=== PATIENT | male | born 1965 | race African-American/Black ===

== ENCOUNTER 2016-07-06 10:39 | Emergency (ER) | payer MEDICAID, OTHER ==
[~2016-07-06] VITALS: Ht 182.9 cm; Wt 81.6 kg
[2016-07-06] MEDS ORDERED: NAPR500T PO (12:32)
[2016-07-06] MEDS ORDERED: ULTR50TA PO (12:32)
--- NOTE | 2016-07-06 12:32 | REP ---
RIGHT KNEE SERIES: Five views. HISTORY: Trauma. FINDINGS: The patient is status post screw plate fixation for lateral tibial plateau fracture. Radiographs from October 14, 2015 show the fracture. No new fracture is appreciated today. IMPRESSION: Status post screw plate fixation lateral tibial plateau fracture. No new fracture seen. Signed by Salvador Dobbs MD 07/06/2016 02:02 P
--- NOTE | 2016-07-06 12:37 | REP ---
RIGHT ANKLE COMPLETE: 07/06/2016 COMPARISON: 10/14/2015 CLINICAL HISTORY: Trauma, circumferential pain about the ankle. Twisting injury. Four views show two screws in the medial malleolus into the lower tibia. There is a plate and screw fixation along the distal fibula as before with a single anterior to posterior screw also in that fibula. Healing and remodeling of the fracture is noted. I do not see any new or superimposed acute fracture. The more peripheral of the threaded nails in the medial malleolus now extends to the peripheral margin of the distal tibial metaphysis but does not definitely protruding through it. There are extensive post-traumatic arthritic changes all around the ankle mortise joint with numerous subchondral lucencies and sclerosis in the tibial plafond medial malleolus and the adjacent talus. There is less degenerative change along the lateral margin of the talus and adjacent fibula. The subtalar joints were intact. There is a small ossific density anterior to the tibial plafond as a calcific loose body. There is a tiny spur at the insertion of the Achilles tendon and plantar aponeurosis on the posterior calcaneus. Narrowing of the calcaneal cuboid articulation noted but not the talonavicular joint. IMPRESSION: 1. Extensive post-traumatic arthritis with sclerosis, subchondral cystic change and erosions of the tibial plafond and medial malleolar margins and the adjacent talar dome and medial wall of the talus. 2. Status post ORIF for bilateral malleolar fracture with healing and remodeling of the distal fibular fracture. The two screws in the medial malleolus are intact. There is no evidence of an acute fracture. Signed by Odilon Walls MD 07/06/2016 05:02 P
[2016-07-06 12:40] VITALS: BP 135/71
== END 2016-07-06 12:42 | disposition home or self-care (01) ==
LOC: M ED 11:34
DX: S93.401A Sprain of unspecified ligament of right ankle, initial encounter (principal); S83.91XA Sprain of unspecified site of right knee, initial encounter; W01.198A Fall on same level from slipping, tripping and stumbling with subsequent striking against other object, initial encounter; Y92.099 Unspecified place in other non-institutional residence as the place of occurrence of the external cause; Y93.01 Activity, walking, marching and hiking; Y99.9 Unspecified external cause status

== ENCOUNTER → 2016-08-07 | Outpatient (REF) | payer OTHER ==
[~2016-08-07] MED LIST: NAPR500T PO; ULTR50TA PO
== END ==
LOC: M SFHCPLAZ 10:33
PROVIDERS: ATTEND Family Medicine
DX: R76.8 Other specified abnormal immunological findings in serum (principal)

== ENCOUNTER → 2016-08-07 | Outpatient (REF) | payer OTHER ==
[2016-08-07 15:57] LABS: BASO % 0.4 % (0.0-1.0); EOS % 0.7 % (0.0-3.0); LARGE UNSTAINED CELL # 0.1 K/mm3 (0.0-0.4); LARGE UNSTAINED CELL % 1.7 % (0.0-4.0); LYMPH # 2.3 K/mm3 (1.5-4.5); LYMPH % 29.9 % (24.0-44.0); MEAN CORPUSCULAR HEMOGLOBIN 30.5 pg (27.0-33.0); MEAN CORPUSCULAR HGB CONC 32.6 g/dl (32.0-36.5); MEAN CORPUSCULAR VOLUME 93.4 fl (80.0-96.0); MONO # 0.4 K/mm3 (0.0-0.8); MONO % 5.8 % (0.0-5.0); NEUTROPHILS # 4.5 K/mm3 (1.8-7.7); NEUTROPHILS % 61.4 % (36.0-66.0); PLATELET COUNT, AUTOMATED 206 k/mm3 (150-450); RED CELL DISTRIBUTION WIDTH 13.1 % (11.5-14.5); WHITE BLOOD COUNT 7.3 K/mm3 (4.0-10.0)
[2016-08-07 16:24] LABS: ALBUMIN 4.2 GM/DL (3.2-5.2); ALBUMIN/GLOBULIN RATIO 1.05 (1.00-1.93); ALKALINE PHOSPHATASE 141 U/L (45-117); ALT/SGPT 197 U/L (12-78); ANION GAP 8 MEQ/L (8-16); AST/SGOT 88 U/L (15-37); BILIRUBIN,TOTAL 0.9 MG/DL (0.2-1.0); BLOOD UREA NITROGEN 13 MG/DL (7-18); CALCIUM LEVEL 8.5 MG/DL (8.5-10.1); CARBON DIOXIDE LEVEL 27 MEQ/L (21-32); CHLORIDE LEVEL 105 MEQ/L (98-107); CREATININE FOR GFR 1.03 MG/DL (0.70-1.30); GLOMERULAR FILTRATION RATE > 60.0 (>56); GLUCOSE, FASTING 93 MG/DL (70-105); SODIUM LEVEL 140 MEQ/L (136-145); TOTAL PROTEIN 8.2 GM/DL (6.4-8.2)
== END ==
LOC: M LABDRAWP 15:10
PROVIDERS: ATTEND Family Medicine
DX: R11.2 Nausea with vomiting, unspecified (principal)

== ENCOUNTER → 2017-02-04 | Outpatient (REF) | payer OTHER ==
[~2017-02-04] MED LIST changes: -ULTR50TA PO; +ULTR50TA8 PO
[2017-02-04 13:00] LABS: ALBUMIN 3.7 GM/DL (3.2-5.2); ALKALINE PHOSPHATASE 108 U/L (45-117); ALT/SGPT 79 U/L (12-78); ANION GAP 7 MEQ/L (8-16); AST/SGOT 40 U/L (15-37); BILIRUBIN,TOTAL 0.4 MG/DL (0.2-1.0); BLOOD UREA NITROGEN 13 MG/DL (7-18); CALCIUM LEVEL 8.3 MG/DL (8.5-10.1); CARBON DIOXIDE LEVEL 27 MEQ/L (21-32); CHLORIDE LEVEL 106 MEQ/L (98-107); CREATININE FOR GFR 0.98 MG/DL (0.70-1.30); GLOMERULAR FILTRATION RATE > 60.0 (>56); GLUCOSE, FASTING 99 MG/DL (70-105); POTASSIUM SERUM 3.9 MEQ/L (3.5-5.1); SODIUM LEVEL 140 MEQ/L (136-145); TOTAL PROTEIN 7.8 GM/DL (6.4-8.2)
[2017-02-04 13:07] LABS: HEPATITIS B SURFACE ANTIBODY POSITIVE (POSITIVE)
[2017-02-04 13:40] LABS: BASO % 0.4 % (0.0-1.0); EOS # 0.1 10^3/uL (0.0-0.50); EOS % 0.9 % (0.0-3.0); IMMATURE GRANULOCYTE % 0.4 % (0-0); LYMPH # 2.6 10^3/uL (1.5-4.5); LYMPH % 30.3 % (24.0-44.0); MEAN CORPUSCULAR HEMOGLOBIN 30.8 pg (27.0-33.0); MEAN CORPUSCULAR HGB CONC 32.7 g/dl (32.0-36.5); MEAN CORPUSCULAR VOLUME 94.2 fl (80.0-96.0); MONO # 0.6 10^3/uL (0.0-0.8); MONO % 6.8 % (0.0-5.0); NEUTROPHILS # 5.2 10^3/uL (1.8-7.7); NEUTROPHILS % 61.2 % (36.0-66.0); PLATELET COUNT, AUTOMATED 216 10^3/uL (150-450); RED CELL DISTRIBUTION WIDTH 13.4 % (11.5-14.5); WHITE BLOOD COUNT 8.5 10^3/uL (4.0-10.0)
[2017-02-07 08:16] LABS: ALT 76 IU/L (0-55); GGT 52 IU/L (0-65); HAPTOGLOBIN 118 mg/dL (34-200); NECROINFLAM SCORE 0.38 (0.00-0.17); NECROINFLAMM GRADE A1-A2 (.); TOTAL BILIRUBIN 0.2 mg/dL (0.0-1.2)
== END ==
LOC: M SFHCPLAZ 10:45
PROVIDERS: ATTEND Internal Medicine Infectious Disease
DX: K73.2 Chronic active hepatitis, not elsewhere classified (principal)

== ENCOUNTER → 2017-02-08 | Outpatient (REF) | payer OTHER ==
[2017-02-08 16:12] LABS: ALT/SGPT 75 U/L (12-78); AST/SGOT 34 U/L (15-37)
[2017-02-12 14:13] LABS: HEPATITIS C QUANTITATION 167570 IU/mL (.); PSA TOTAL 0.6 ng/mL (0.0-4.0)
== END ==
LOC: M SFHCPLAZ 14:54
PROVIDERS: ATTEND Internal Medicine Infectious Disease
DX: Z12.5 Encounter for screening for malignant neoplasm of prostate (principal); F41.1 Generalized anxiety disorder; K73.2 Chronic active hepatitis, not elsewhere classified

== ENCOUNTER 2017-05-14 00:20 | Emergency (ER) | payer OTHER ==
[2017-05-14 01:01] LABS: BASO % 0.3 % (0.0-1.0); EOS # 0.1 10^3/uL (0.0-0.50); EOS % 1.3 % (0.0-3.0); HEMATOCRIT 44.2 % (42.0-52.0); HEMOGLOBIN 14.5 g/dl (14.0-18.0); IMMATURE GRANULOCYTE % 0.2 % (0-0); LYMPH # 3.4 10^3/uL (1.5-4.5); LYMPH % 39.1 % (24.0-44.0); MEAN CORPUSCULAR HEMOGLOBIN 29.8 pg (27.0-33.0); MEAN CORPUSCULAR HGB CONC 32.8 g/dl (32.0-36.5); MEAN CORPUSCULAR VOLUME 90.9 fl (80.0-96.0); MONO # 0.7 10^3/uL (0.0-0.8); MONO % 7.8 % (0.0-5.0); NEUTROPHILS # 4.5 10^3/uL (1.8-7.7); NEUTROPHILS % 51.3 % (36.0-66.0); RED BLOOD COUNT 4.86 10^6/uL (4.30-6.10); RED CELL DISTRIBUTION WIDTH 12.8 % (11.5-14.5); WHITE BLOOD COUNT 8.7 10^3/uL (4.0-10.0)
[2017-05-14 01:04] LABS: POS COUNT POS FLAG
[2017-05-14 01:32] LABS: ANION GAP 6 MEQ/L (8-16); BLOOD UREA NITROGEN 16 MG/DL (7-18); CALCIUM LEVEL 8.8 MG/DL (8.5-10.1); CARBON DIOXIDE LEVEL 28 MEQ/L (21-32); CHLORIDE LEVEL 104 MEQ/L (98-107); CPK CREATINE PHOSPHOKINASE 237 U/L (39-308); CREATININE FOR GFR 1.07 MG/DL (0.70-1.30); GLOMERULAR FILTRATION RATE > 60.0 (>56); GLUCOSE, FASTING 84 MG/DL (70-100); MB/CK RELATIVE INDEX 0.42 (< OR =4); POTASSIUM SERUM 5.1 MEQ/L (3.5-5.1); SODIUM LEVEL 138 MEQ/L (136-145); TROPONIN I < 0.02 NG/ML (< 0.10)
[2017-05-14] MEDS: NITROGLYCERIN 0.4 MG SUBL TABLET SL (01:55)
[2017-05-14] MEDS: ASPIRIN 81 MG CHEW TABLET PO (01:55)
== END 2017-05-14 04:23 | disposition home or self-care (01) ==
LOC: M ED 00:20
DX: R07.9 Chest pain, unspecified (principal); F17.200 Nicotine dependence, unspecified, uncomplicated
CPT/HCPCS: 71046

== ENCOUNTER → 2017-06-20 | Outpatient (REF) | payer OTHER ==
[2017-06-20 12:57] LABS: ALBUMIN 3.8 GM/DL (3.2-5.2); ALBUMIN/GLOBULIN RATIO 0.97 (1.00-1.93); ALKALINE PHOSPHATASE 98 U/L (45-117); ALT/SGPT 17 U/L (12-78); AST/SGOT 19 U/L (7-37); BILIRUBIN,DIRECT 0.3 MG/DL (0.0-0.2); BILIRUBIN,TOTAL 1.4 MG/DL (0.2-1.0); TOTAL PROTEIN 7.7 GM/DL (6.4-8.2)
[2017-06-24 10:08] LABS: HEPATITIS C QUANTITATION HCV Not Detected IU/mL (.)
== END ==
LOC: M SFHCPLAZ 09:28
DX: K73.2 Chronic active hepatitis, not elsewhere classified (principal)
CPT/HCPCS: 36415

== ENCOUNTER 2017-07-15 11:13 | Day surgery (SDC) | payer OTHER ==
[~2017-07-15 11:13] MED LIST changes: -NAPR500T PO; +PROPOFOL 200 MG/20 ML VIAL As Ordered; -ULTR50TA8 PO
[2017-07-15] MEDS ORDERED: NS 1,000 ML IV (12:45)
[2017-07-15] MEDS ORDERED: PROPOFOL 200 MG/20 ML VIAL As Ordered (13:43)
== END 2017-07-15 14:22 | disposition home or self-care (01) ==
LOC: M OPP 11:13
DX: Z12.11 Encounter for screening for malignant neoplasm of colon (principal); K62.1 Rectal polyp; K64.8 Other hemorrhoids; J45.909 Unspecified asthma, uncomplicated; M19.90 Unspecified osteoarthritis, unspecified site; F32.9 Major depressive disorder, single episode, unspecified; F11.11 Opioid abuse, in remission; B18.2 Chronic viral hepatitis C; Z91.040 Latex allergy status; Z91.018 Allergy to other foods; Z79.899 Other long term (current) drug therapy
CPT/HCPCS: 45385

== ENCOUNTER → 2018-01-23 | Outpatient (CLI) | payer MEDICAID | LOC: M OUTALCOH 13:59 | DX: Z13.89 Encounter for screening for other disorder (principal); F11.20 Opioid dependence, uncomplicated ==

== ENCOUNTER 2018-02-06 15:55 | Outpatient (RCR) | payer MEDICAID | END 2018-02-19 | LOC: M OUTALCOH 15:55 | DX: F11.20 Opioid dependence, uncomplicated (principal) ==

== ENCOUNTER 2018-07-17 14:21 | Emergency (ER) | payer MEDICAID, OTHER ==
[~2018-07-17] VITALS: Ht 180.3 cm; Wt 84.1 kg
[~2018-07-17 14:21] MED LIST changes: +EPCL1TAB PO; +GABA-1171 PO; +NAPR-837 PO; -PROPOFOL 200 MG/20 ML VIAL As Ordered; +SUBO4MIS SL; +ULTR50TA8 PO
--- NOTE | 2018-07-17 15:10 | ECGEPIP ---
Stationary ECG Study [facility] - ED Test Date: 2018-07-17 Pat Name: DORA PHILLIPS Department: Room: - Gender: M [employer] Operator: pmo : [id number] Requested By: Todd Millan Order Number: [id number] Reading MD: Alysia Ames Measurements Intervals [place] Rate: 88 P: 66 [place]: 152 QRS: 74 QRSD: 84 T: 59 QT: 313 QTc: 379 Interpretive Statements SINUS RHYTHM DECREASED RATE 10/14/15 Electronically Signed On 07-17-2018 15:10:05 EDT by Alysia Ames
[2018-07-17 15:20] LABS: BASO % 0.3 % (0.0-1.0); EOS # 0.1 10^3/uL (0.0-0.50); EOS % 0.7 % (0.0-3.0); HEMATOCRIT 47.7 % (42.0-52.0); HEMOGLOBIN 15.7 g/dl (13.5-17.5); LYMPH # 2.4 10^3/uL (1.5-4.5); MEAN CORPUSCULAR HGB CONC 32.9 g/dl (32.0-36.5); MONO # 0.5 10^3/uL (0.0-0.8); MONO % 6.8 % (0.0-5.0); NEUTROPHILS # 4.6 10^3/uL (1.8-7.7); NEUTROPHILS % 60.9 % (36.0-66.0); PLATELET COUNT, AUTOMATED 226 10^3/uL (150-450); RED BLOOD COUNT 5.24 10^6/uL (4.30-6.10); WHITE BLOOD COUNT 7.6 10^3/uL (4.0-10.0)
--- NOTE | 2018-07-17 15:47 | REP ---
Chest x-ray: Two views. History: Chest pain. Comparison study: May 14, 2017. Findings: The lungs are well inflated and clear. The pleural angles are sharp. Heart size is normal. No bony abnormality is seen. Pulmonary vasculature is not increased. Impression: Negative chest x-ray. Electronically Signed by Salvador Dobbs MD 07/17/2018 03:39 P
[2018-07-17 15:51] LABS: ALBUMIN 3.7 GM/DL (3.2-5.2); ALT/SGPT 22 U/L (12-78); BILIRUBIN,DIRECT 0.1 MG/DL (0.0-0.2); BILIRUBIN,TOTAL 0.9 MG/DL (0.2-1.0); BLOOD UREA NITROGEN 12 MG/DL (7-18); C REACTIVE PROTEIN QUANTITATIV < 0.30 MG/DL (0.00-0.30); CALCIUM LEVEL 8.8 MG/DL (8.5-10.1); CARBON DIOXIDE LEVEL 27 MEQ/L (21-32); CHLORIDE LEVEL 107 MEQ/L (98-107); CPK CREATINE PHOSPHOKINASE 213 U/L (39-308); CREATININE FOR GFR 1.15 MG/DL (0.70-1.30); GLOMERULAR FILTRATION RATE > 60.0 (>56); GLUCOSE, FASTING 92 MG/DL (70-100); LIPASE 125 U/L (73-393); MB/CK RELATIVE INDEX 0.52 (< OR =4); NT-PRO BNP 8 PG/ML (<125); POTASSIUM SERUM 4.3 MEQ/L (3.5-5.1); SODIUM LEVEL 140 MEQ/L (136-145); THYROID STIMULATING HORMONE 0.988 uIU/ML (0.358-3.740); TOTAL PROTEIN 7.7 GM/DL (6.4-8.2); TROPONIN I < 0.02 NG/ML (< 0.10)
[2018-07-17 16:05] LABS: ERYTHROCYTE SEDIMENTATION RATE 4 mm/hr (0-20)
[2018-07-17 16:40] VITALS: BP 131/74
== END 2018-07-17 16:42 | disposition home or self-care (01) ==
LOC: M ED 14:21
DX: R07.89 Other chest pain (principal); F19.11 Other psychoactive substance abuse, in remission; F17.210 Nicotine dependence, cigarettes, uncomplicated

== ENCOUNTER 2018-12-21 23:02 | Emergency (ER) | payer OTHER ==
[~2018-12-21] VITALS: Ht 180.3 cm; Wt 86.4 kg
[2018-12-21 23:31] VITALS: BP 126/67
== END 2018-12-21 23:38 | disposition home or self-care (01) ==
LOC: M ED 23:02
DX: F11.10 Opioid abuse, uncomplicated (principal); Z79.899 Other long term (current) drug therapy; F17.200 Nicotine dependence, unspecified, uncomplicated

== ENCOUNTER → 2019-01-26 | Outpatient (REF) | payer OTHER ==
[2019-01-26 16:03] LABS: BASO % 0.2 % (0.0-1.0); EOS % 0.8 % (0.0-3.0); HEMATOCRIT 49.3 % (42.0-52.0); HEMOGLOBIN 15.8 g/dl (13.5-17.5); LYMPH # 1.8 10^3/uL (1.5-5.0); LYMPH % 34.6 % (24.0-44.0); MEAN CORPUSCULAR HEMOGLOBIN 30.7 pg (27.0-33.0); MEAN CORPUSCULAR VOLUME 95.7 fl (80.0-96.0); MONO # 0.5 10^3/uL (0.0-0.8); MONO % 8.8 % (0.0-5.0); NEUTROPHILS # 2.9 10^3/uL (1.5-8.5); NEUTROPHILS % 55.4 % (36.0-66.0); PLATELET COUNT, AUTOMATED 247 10^3/uL (150-450); RED BLOOD COUNT 5.15 10^6/uL (4.30-6.10); WHITE BLOOD COUNT 5.2 10^3/uL (4.0-10.0)
[2019-01-26 16:45] LABS: ERYTHROCYTE SEDIMENTATION RATE 7 mm/hr (0-20)
== END ==
LOC: M LABDRAW1 11:14
PROVIDERS: ATTEND Orthopaedic Surgery
DX: T84.84XD Pain due to internal orthopedic prosthetic devices, implants and grafts, subsequent encounter (principal)

== ENCOUNTER → 2020-04-11 | Outpatient (REF) | payer OTHER ==
[2020-04-11 15:10] LABS: BASO % 0.3 % (0.0-1.0); EOS # 0.1 10^3/uL (0.0-0.5); HEMATOCRIT 44.4 % (42.0-52.0); HEMOGLOBIN 13.7 g/dl (13.5-17.5); LYMPH % 38.3 % (24.0-44.0); MEAN CORPUSCULAR HEMOGLOBIN 27.6 pg (27.0-33.0); MEAN CORPUSCULAR HGB CONC 30.9 g/dl (32.0-36.5); MEAN CORPUSCULAR VOLUME 89.3 fl (80.0-96.0); MONO # 0.5 10^3/uL (0.0-0.8); NEUTROPHILS # 4.3 10^3/uL (1.5-8.5); NEUTROPHILS % 54.1 % (36.0-66.0); PLATELET COUNT, AUTOMATED 230 10^3/uL (150-450); RED BLOOD COUNT 4.97 10^6/uL (4.30-6.10); WHITE BLOOD COUNT 7.8 10^3/uL (4.0-10.0)
[2020-04-11 15:52] LABS: ALBUMIN 3.9 GM/DL (3.2-5.2); ALT/SGPT 24 U/L (12-78); BILIRUBIN,TOTAL 1.2 MG/DL (0.2-1.0); BLOOD UREA NITROGEN 14 MG/DL (7-18); CALCIUM LEVEL 9.2 MG/DL (8.5-10.1); CARBON DIOXIDE LEVEL 31 MEQ/L (21-32); CHLORIDE LEVEL 102 MEQ/L (98-107); CHOLESTEROL LEVEL 212 MG/DL (<200); CHOLESTEROL RISK RATIO 3.365 (<5); CREATININE FOR GFR 1.02 MG/DL (0.70-1.30); GLOMERULAR FILTRATION RATE > 60.0 (>56); GLUCOSE, FASTING 74 MG/DL (70-100); HDL CHOLESTEROL 63 MG/DL (>40); HEPATITIS B SURFACE ANTIBODY POSITIVE (POSITIVE); LDL CHOLESTEROL 127 MG/DL (<100); NON-HDL-C 149 MG/DL; SODIUM LEVEL 139 MEQ/L (136-145); TOTAL PROTEIN 7.8 GM/DL (6.4-8.2); TRIGLYCERIDES LEVEL 110 MG/DL (<150)
[2020-04-11 15:55] LABS: HEMOGLOBIN A1c 5.7 %
[2020-04-11 16:02] LABS: HEPATITIS B SURFACE ANTIGEN NEGATIVE (NEGATIVE)
[2020-04-11 16:31] LABS: HIV 1&2 SCREEN CENTAUR NEGATIVE (NEGATIVE)
[2020-04-13 23:09] LABS: HEPATITIS A IgG TOTAL Positive (Negative); HEPATITIS B CORE ANTIBODY IGG Negative (Negative); HEPATITIS C QUANTITATION HCV Not Detected IU/mL (.)
== END ==
LOC: M SFHCPLAZ 13:05
PROVIDERS: ATTEND Physician Assistant
DX: K73.2 Chronic active hepatitis, not elsewhere classified (principal); R35.1 Nocturia; Z13.220 Encounter for screening for lipoid disorders

== ENCOUNTER 2021-08-09 08:13 | Emergency (ER) | payer OTHER ==
[~2021-08-09] VITALS: Ht 180.3 cm; Wt 95.0 kg
[2021-08-09] MEDS ORDERED: NS 1,000 ML IV ONE (08:25)
[2021-08-09 09:00] LABS: BASO % 0.4 % (0.0-1.0); EOS % 0.1 % (0.0-3.0); HEMATOCRIT 43.5 % (42.0-52.0); HEMOGLOBIN 13.7 g/dl (13.5-17.5); LYMPH # 1.3 10^3/uL (1.5-5.0); MEAN CORPUSCULAR HGB CONC 31.5 g/dl (32.0-36.5); MONO # 0.4 10^3/uL (0.0-0.8); NEUTROPHILS # 5.7 10^3/uL (1.5-8.5); NEUTROPHILS % 76.2 % (36.0-66.0); PLATELET COUNT, AUTOMATED 268 10^3/uL (150-450); RED BLOOD COUNT 4.89 10^6/uL (4.30-6.10); WHITE BLOOD COUNT 7.5 10^3/uL (4.0-10.0)
[2021-08-09 09:32] LABS: OSMOLALITY SERUM 292 MOSM/KG (275-295)
[2021-08-09 09:34] LABS: ACETAMINOPHEN LEVEL < 2.0 UG/ML (10.0-30.0); ALBUMIN 3.7 GM/DL (3.2-5.2); ALT/SGPT 26 U/L (12-78); BILIRUBIN,DIRECT < 0.1 MG/DL (0.0-0.2); BILIRUBIN,TOTAL 0.5 MG/DL (0.2-1.0); BLOOD UREA NITROGEN 9 MG/DL (7-18); CALCIUM LEVEL 9.2 MG/DL (8.5-10.1); CARBON DIOXIDE LEVEL 28 MEQ/L (21-32); CHLORIDE LEVEL 103 MEQ/L (98-107); CREATININE FOR GFR 1.01 MG/DL (0.70-1.30); ETHYL ALCOHOL (ETHANOL) < 0.003 % (0.000-0.010); GLOMERULAR FILTRATION RATE > 60.0 (>56); GLUCOSE, FASTING 162 MG/DL (70-100); POTASSIUM SERUM 4.3 MEQ/L (3.5-5.1); SALICYLATE LEVEL 3.6 MG/DL (5.0-30.0); SODIUM LEVEL 139 MEQ/L (136-145); THYROID STIMULATING HORMONE 0.894 uIU/ML (0.358-3.740)
[2021-08-09 11:27] VITALS: BP 190/96
[2021-08-09 12:12] LABS: AMPHETAMINES LEVEL URINE POSITIVE (NEGATIVE); BARBITURATES URINE NEGATIVE (NEGATIVE); BENZODIAZEPINES URINE NEGATIVE (NEGATIVE); CANNABINOIDS URINE NEGATIVE (NEGATIVE); COCAINE METABOLITE URINE NEGATIVE (NEGATIVE); METHADONE URINE NEGATIVE (NEGATIVE); OPIATES URINE POSITIVE (NEGATIVE); PHENCYCLIDINE URINE NEGATIVE (NEGATIVE)
[2021-08-10] MEDS ORDERED: GABA600T4 PO (06:17)
== END 2021-08-09 11:40 | disposition left against medical advice (07) ==
LOC: EDBD 08:13 → M ED 08:19
DX: R42 Dizziness and giddiness (principal); Z53.9 Procedure and treatment not carried out, unspecified reason; R00.0 Tachycardia, unspecified; Z86.19 Personal history of other infectious and parasitic diseases; F17.200 Nicotine dependence, unspecified, uncomplicated; F11.10 Opioid abuse, uncomplicated

== ENCOUNTER 2022-06-12 09:46 | Emergency (ER) | payer MEDICAID, OTHER ==
[~2022-06-12] VITALS: Ht 180.3 cm; Wt 77.3 kg
[~2022-06-12 09:46] MED LIST changes: +CLONI1TA PO; +GABA600T4 PO; +HYDR-3363 PO; +HYDR50TA70 PO; +NICO21PAT TD; +OLAN1TAB16 PO; +ONDA4TAB6 SL; +TRAZ-252 PO
[2022-06-12] MEDS ORDERED: IBUP-1022 PO (11:31)
[2022-06-12 12:19] VITALS: BP 160/75
[2022-06-12] MEDS ORDERED: IBUPROFEN 600MG TAB PO ONE (12:35)
== END 2022-06-12 12:39 | disposition home or self-care (01) ==
LOC: M ED 09:46 → EDBD 09:46 → M ED 12:39
DX: S93.491A Sprain of other ligament of right ankle, initial encounter (principal); W19.XXXA Unspecified fall, initial encounter; F15.10 Other stimulant abuse, uncomplicated; Z91.040 Latex allergy status; Z79.891 Long term (current) use of opiate analgesic; Z79.83 Long term (current) use of bisphosphonates; Z79.899 Other long term (current) drug therapy; Y92.009 Unspecified place in unspecified non-institutional (private) residence as the place of occurrence of the external cause

== ENCOUNTER 2022-06-24 23:54 | Emergency (ER) | payer OTHER ==
[~2022-06-24] VITALS: Ht 180.3 cm; Wt 68.0 kg
[~2022-06-24 23:54] MED LIST changes: +IBUP-1022 PO
[2022-06-25] MEDS ORDERED: NS 2,040 ML in IV 1 EA IV ONE (00:15)
[2022-06-25 00:40] LABS: ABG BASE EXCESS -5.4 (-2.0-2.0); ABG O2 SATURATION 98.7 % (95.0-99.0); ABG PARTIAL PRESSURE CO2 29.7 mmHg (35.0-45.0); ABG PARTIAL PRESSURE O2 142.9 mmHg (75.0-100.0); ABG STANDARD HCO3 20.1 MEQ/L (22.0-26.0); ABG TOTAL CO2 18.9 MEQ/L (22.0-29.0); ABG pH (ARTERIAL) 7.401 UNITS (7.350-7.450)
[2022-06-25 01:12] LABS: BASO % 0.2 % (0.0-1.0); HEMATOCRIT 39.9 % (42.0-52.0); HEMOGLOBIN 13.5 g/dl (13.5-17.5); LYMPH # 0.7 10^3/uL (1.5-5.0); MEAN CORPUSCULAR HEMOGLOBIN 27.5 pg (27.0-33.0); MEAN CORPUSCULAR HGB CONC 33.8 g/dl (32.0-36.5); MEAN CORPUSCULAR VOLUME 81.3 fl (80.0-96.0); MONO # 0.2 10^3/uL (0.0-0.8); MONO % 1.9 % (2.0-8.0); NEUTROPHILS # 11.1 10^3/uL (1.5-8.5); NEUTROPHILS % 90.8 % (36.0-66.0); PLATELET COUNT, AUTOMATED 342 10^3/uL (150-450); RED BLOOD COUNT 4.91 10^6/uL (4.30-6.10); WHITE BLOOD COUNT 12.2 10^3/uL (4.0-10.0)
[2022-06-25 01:12] LABS: RSV AMPLIFICATION NEGATIVE (NEGATIVE)
[2022-06-25 01:19] LABS: APPEARANCE, URINE HAZY (CLEAR); BACTERIA, URINE AUTO NEGATIVE (NEGATIVE); BILIRUBIN, URINE AUTO NEGATIVE (NEGATIVE); BLOOD, URINE BLOOD 3+ (NEGATIVE); COLOR, URINE AMBER (YELLOW); GLUCOSE, URINE (UA) AUTO NEGATIVE (NEGATIVE); KETONE, URINE AUTO NEGATIVE (NEGATIVE); LEUKOCYTE ESTERASE, URINE AUTO 3+ (NEGATIVE); NITRITE, URINE AUTO NEGATIVE (NEGATIVE); PROTEIN, URINE AUTO 1+ mg/dL (NEGATIVE); RBC, URINE AUTO 19 /HPF (0-3); SPECIFIC GRAVITY URINE AUTO 1.015 (1.002-1.035); SQUAMOUS EPITHELIAL CELL UR AU 0 /HPF (0-6); WBC, URINE AUTO 106 /HPF (0-3)
[2022-06-25 01:24] LABS: INR 2.26; PROTHROMBIN TIME 25.3 SECONDS (12.5-14.5)
[2022-06-25 01:25] LABS: PARTIAL THROMBOPLASTIN TIME 39.2 SECONDS (24.8-34.2)
[2022-06-25 01:54] LABS: C REACTIVE PROTEIN QUANTITATIV 22.4 MG/DL (<1.0)
[2022-06-25] MEDS ORDERED: ISOVUE-370 76% 100ML VIAL As Ordered ONE (02:06)
[2022-06-25 02:12] LABS: ALBUMIN 2.1 G/DL (3.2-5.2); BILIRUBIN,TOTAL 1.7 MG/DL (0.3-1.2); CALCIUM LEVEL 7.5 MG/DL (8.5-10.1); CK-MB VALUE MASS 95.5 NG/ML (<3.6); CREATININE FOR GFR 4.21 MG/DL (0.70-1.30); GLOMERULAR FILTRATION RATE 18.9 (>56); MB/CK RELATIVE INDEX 1.35 (< OR =4); POTASSIUM SERUM 4.9 MMOL/L (3.5-5.1)
[2022-06-25] MEDS ORDERED: NS 1,000 ML IV SCH (04:45)
[2022-06-25] MEDS ORDERED: PIPERACILLIN/TAZOBACTAM SOD 3.375 GM in D5W MINI-BAG PLUS 50 ML IV ONE (04:45)
[2022-06-25] MEDS ORDERED: VANCOMYCIN HCL 1,000 MG in IV FLUID PLACE HOLDER 1 EA IV ONE (04:45)
[2022-06-25] MEDS ORDERED: VANCOMYCIN HCL 750 MG, VIAL MATE ADAPTER 1 EACH in D5W 250 ML IV ONE (05:00)
[2022-06-25] MEDS ORDERED: VANCOMYCIN HCL 500 MG in D5W MINI-BAG PLUS 100 ML IV ONE (06:00)
[2022-06-25 06:45] VITALS: BP 91/50
[2022-06-25 09:22] LABS: TOTAL PROTEIN 9.7 G/DL (5.7-8.2)
== END 2022-06-25 06:49 | disposition short-term general hospital (02) ==
LOC: EDBD 23:54 → M ED 23:54
DX: M62.82 Rhabdomyolysis (principal); F11.10 Opioid abuse, uncomplicated; E86.0 Dehydration; A41.9 Sepsis, unspecified organism; M46.42 Discitis, unspecified, cervical region; M86.8X8 Other osteomyelitis, other site; F41.9 Anxiety disorder, unspecified; J30.89 Other allergic rhinitis; Z91.040 Latex allergy status
CPT/HCPCS: 36415; 36600; 70450; 71045; 71250; 72125; 74176; 80048; 80076; 81001; 81002; 82150; 82550; 82553; 82803; 83605; 85025; 85610; 85730; 86140; 86850; 86900; 86901; 87040; 87077; 87186; 87631; 93005; 93041; 94760; 96361; 96365; 96368; 96375; 99285; J2543; J3370